=== PATIENT | male | born 1945 ===

== ENCOUNTER → 2023-05-05 07:21 | Outpatient (CLI) | payer MEDICARE, SELFPAY ==
--- NOTE | ~2023-05-05 | MR_ITS ---
MRI of the cervical spine Clinical History: Cervical myelopathy Technique: Axial T2-weighted and gradient images, and sagittal T1-weighted, T2-weighted, and STIR estefani ges were acquired. Findings: There is no fracture of cervical spine. There is minimal grade 1 anterolisthesis of C4 over C5. No suspicious bone marrow signal abnormality seen. At C2-C3, there is no disc bulge or herniation. There is right facet arthropathy with resultant right neural foraminal narrowing. No left neural foraminal narrowing. No central canal stenosis or cord co mpression. At C3-C4, there is severe degenerative disc narrowing with large disc osteophyte complex and probable superimposed central disc herniation. There is mild facet arthropathy. These factors result in sever e spinal canal stenosis and associated severe focal cord compression. There is mild spinal cord edema at the C3-C4 level, presumably related to the impingement. There is advanced bilateral neural forami nal narrowing at this level as well. At C4-C5, there is minimal disc osteophyte complex. There is facet arthropathy, left worse than right . Possible minimal bilateral neural foraminal narrowing. No central canal stenosis or cord compressio n. At C5-C6, there is mild disc osteophyte complex and mild facet arthropathy. There is probable minimal bilateral neural foraminal narrowing. No central canal stenosis or cord compression. At C6-C7, there is degenerative disc narrowing with mild disc osteophyte complex. There is bilateral neural foraminal narrowing. No central canal stenosis or cord compression. Paravertebral soft tissues are unremarkable. Impression: Severe degenerative spondylosis at C3-C4, resulting in severe spinal canal stenosis and cord compress ion with associated cord edema at this level. Please see details above. Severe bilateral neural foraminal narrowing at C3-C4. Additional multilevel minimal neural foraminal narrowing, as detailed above. Minimal grade 1 anterolisthesis of C4 over C5. Reviewed, dictated and finalized at location . Impression: Severe degenerative spondylosis at C3-C4, resulting in severe spinal canal sten osis and cord compression with associated cord edema at this level. Please see details above. Severe bilateral neural foraminal narrowing at C3-C4. Additional multilevel min imal neural foraminal narrowing, as detailed above. Minimal grade 1 anterolisthesis of C4 over C5.
== END ==
PROVIDERS: PCP Internal Medicine; Visit Provider Internal Medicine
DX: G95.9 Disease of spinal cord, unspecified (principal); M47.892 Other spondylosis, cervical region
CPT/HCPCS: 72141